=== PATIENT | female | born 1975 | race Caucasian/White ===

== ENCOUNTER 2024-05-18 09:10 | Inpatient (IN) | payer OTHER ==
[~2024-05-18] VITALS: Ht 162.6 cm; Wt 58.1 kg
[2024-05-18] VITALS (7 sets, daily range): BP systolic 119–120; BP diastolic 74–78; PULSE 79–80; RESP 17–18; TEMP 98.1–98.9; O2SAT 17–100
[2024-05-18 10:01] LABS: BASOPHILS % 0.7 % (0.0-1.0); EOSINOPHILS # (AUTO) 0.1 (0.0-0.4); HEMATOCRIT 35.4 % (34.2-44.1); HEMOGLOBIN 11.4 g/dL (12.0-16.0); LYMPHOCYTES # (AUTO) 1.2 (1.0-3.2); LYMPHOCYTES % 20.5 % (18.0-39.1); MEAN CORPUSCULAR HEMOGLOBIN 29.1 pg (28-32); MEAN CORPUSCULAR HGB CONC 32.2 g/dL (31-35); MEAN CORPUSCULAR VOLUME 90.3 fL (81-99); MONOCYTES # (AUTO) 0.7 (0.2-0.8); MONOCYTES % 12.4 % (4.4-11.3); NEUTROPHILS # (AUTO) 3.8 (2.1-6.9); NEUTROPHILS % 65.2 % (38.7-80.0); RED BLOOD COUNT 3.92 x10e6/uL (3.6-5.1); RED CELL DISTRIBUTION WIDTH 17.2 % (11.7-14.4); WHITE BLOOD COUNT 5.81 x10e3/uL (4.8-10.8)
[2024-05-18 10:05] LABS: PLATELET COUNT 80 x10e3/uL (140-360)
[2024-05-18 10:27] LABS: ALANINE AMINOTRANSFERASE 34 IU/L (0-55); ALBUMIN 3.1 g/dL (3.5-5.0); ALBUMIN/GLOBULIN RATIO 0.8 (0.8-2.0); ALKALINE PHOSPHATASE 161 IU/L (40-150); ANION GAP 15.7 mmol/L (8-16); BILIRUBIN,TOTAL 4.9 mg/dL (0.2-1.2); BLOOD UREA NITROGEN 8 mg/dL (7-26); BUN/CREATININE RATIO 10 (6-25); CALCIUM 8.4 mg/dL (8.4-10.2); CARBON DIOXIDE 28 mmol/L (22-29); CHLORIDE 93 mmol/L (98-107); CREATINE KINASE 216 IU/L (29-168); CREATININE, SERUM 0.84 mg/dL (0.57-1.11); EST GLOMERULAR FILTRATION RATE 85 ML/MIN (>=60); GLUCOSE 128 mg/dL (74-118); LIPASE 27 U/L (8-78); SODIUM 134 mmol/L (136-145); TOTAL PROTEIN 6.9 g/dL (6.5-8.1)
[2024-05-18 10:30] LABS: TROPONIN I 0.025 ng/mL (0-0.300)
[2024-05-18] MEDS: SODIUM CHLORIDE 0.9% 1000ML 1,000 ML IV STA (10:35)
[2024-05-18] MEDS: Morphine 4mg INJECTION 4 MG/ML INJ IV STA (10:35)
[2024-05-18 10:36] LABS: POTASSIUM 2.7 mmol/L (3.5-5.1)
[2024-05-18] MEDS ORDERED: IOPAMIDOL 370 MG/ML 100 ML INFUS..BTL INJ ONE ×2 (10:50→12:14)
[2024-05-18] MEDS: ONDANSETRON HCL INJ 2MG/ML 2ML 2 MG/ML VIAL IV STA (11:55)
[2024-05-18] MEDS: POTASSIUM CHLORIDE 20 MEQ TAB CR PO STA (11:56)
[2024-05-18] MEDS: POTASSIUM CHLORIDE 20MEQ/100ML 100 ML IV ONE (11:57)
[2024-05-18 13:29] LABS: CLARITY,URINE SL CLOUDY (CLEAR); COLOR,URINE ORANGE (YELLOW); GLUCOSE, URINE 1+ (NEGATIVE); KETONES,URINE TRACE (NEGATIVE); LEUKOCYTE ESTERASE ,URINE NEGATIVE (NEGATIVE); NITRITE,URINE NEGATIVE (NEGATIVE); PH,URINE 6 (5 - 7); PROTEIN,URINE DIPSTICK 1+ (NEGATIVE)
[2024-05-18 13:30] LABS: BILIRUBIN,URINE LARGE (NEGATIVE)
[2024-05-18 13:36] LABS: BACTERIA,URINE MODERATE /HPF; EPITHELIAL CELLS,URINE MODERATE /LPF; RBC,URINE 0-5 /HPF (0-5); WBC,URINE (MAN) 0-5 /HPF (0-5)
[2024-05-18] MEDS ORDERED: SODIUM CHLORIDE FLUSH 10 ML SYR INJ PRN (15:00)
[2024-05-18] MEDS: Morphine 4mg INJECTION 4 MG/ML INJ IV PRN (15:34)
[2024-05-18] MEDS: ONDANSETRON HCL INJ 2MG/ML 2ML 2 MG/ML VIAL IV PRN (15:34)
[2024-05-18 16:50] LABS: ANION GAP 14.2 mmol/L (8-16); CREATININE, SERUM 0.8 mg/dL (0.57-1.11)
[2024-05-18 16:53] LABS: POTASSIUM 3.2 mmol/L (3.5-5.1)
[2024-05-18] MEDS: SODIUM CHLORIDE 0.9% 1000ML 1,000 ML IV SCH (17:15)
[2024-05-18] MEDS ORDERED: LORAZEPAM INJ 2 MG/ML VIAL IV PRN (17:30)
[2024-05-18] MEDS ORDERED: CHLORDIAZEPOXIDE HCL 25 MG CAP PO PRN (17:45)
[2024-05-18] MEDS: FAMOTIDINE 20 MG/2 ML VIAL IV SCH (18:12)
[2024-05-18] MEDS: DIAZEPAM INJ 5 MG/ML 2 ML IV PRN (18:12)
[2024-05-18] MEDS: MULTIVITAMINS- 12 INJECTION 10 ML, FOLIC ACID MDV 1 MG, THIAMINE HCL INJ 100 MG in SODI... IV ONE (18:13)
[2024-05-18] MEDS: METOCLOPRAMIDE HCL 10 MG/2ML VIAL IV SCH (23:01)
[2024-05-18] MEDS ORDERED: PROTONIX20 MG PO (23:36)
[2024-05-18] MEDS ORDERED: ALDACTONE100 MG PO (23:36)
[2024-05-18] MEDS ORDERED: FUROSEMIDE40 MG PO (23:37)
[2024-05-19] VITALS: BP 106/68; PULSE 76; RESP 18; TEMP 97.8; O2SAT 98
[2024-05-19 04:00] VITALS: BP 115/73; PULSE 82; RESP 17; TEMP 97.9; O2SAT 94
[2024-05-19 06:08] LABS: BASOPHILS # (AUTO) 0.1 (0.0-0.1); BASOPHILS % 1.3 % (0.0-1.0); EOSINOPHILS # (AUTO) 0.2 (0.0-0.4); EOSINOPHILS % 3.9 % (0.0-6.0); HEMATOCRIT 31.5 % (34.2-44.1); LYMPHOCYTES # (AUTO) 1.1 (1.0-3.2); LYMPHOCYTES % 24.6 % (18.0-39.1); MEAN CORPUSCULAR HEMOGLOBIN 29.3 pg (28-32); MEAN CORPUSCULAR HGB CONC 31.7 g/dL (31-35); MEAN CORPUSCULAR VOLUME 92.4 fL (81-99); MONOCYTES # (AUTO) 0.5 (0.2-0.8); MONOCYTES % 10.8 % (4.4-11.3); NEUTROPHILS # (AUTO) 2.7 (2.1-6.9); NEUTROPHILS % 59.2 % (38.7-80.0); PLATELET COUNT 55 x10e3/uL (140-360); RED BLOOD COUNT 3.41 x10e6/uL (3.6-5.1); RED CELL DISTRIBUTION WIDTH 17.8 % (11.7-14.4); WHITE BLOOD COUNT 4.63 x10e3/uL (4.8-10.8)
[2024-05-19 06:16] LABS: INR 1.67; PROTHROMBIN TIME 20.5 seconds (11.9-14.5)
[2024-05-19 06:51] LABS: ALBUMIN 2.6 g/dL (3.5-5.0); ALBUMIN/GLOBULIN RATIO 0.5 (0.8-2.0); ANION GAP 10.2 mmol/L (8-16); BILIRUBIN,TOTAL 4.5 mg/dL (0.2-1.2); CALCIUM 8.5 mg/dL (8.4-10.2); CREATININE, SERUM 0.75 mg/dL (0.57-1.11); MAGNESIUM 1.9 MG/DL (1.3-2.1); TOTAL PROTEIN 7.8 g/dL (6.5-8.1)
[2024-05-19 06:52] LABS: POTASSIUM 3.2 mmol/L (3.5-5.1)
[2024-05-19 08:27] VITALS: BP 108/76; PULSE 73; RESP 17; TEMP 97.8; O2SAT 94
[2024-05-19] MEDS: FUROSEMIDE INJ 10 MG/ML 2 ML VIAL IV SCH (08:30)
[2024-05-19] MEDS: THIAMINE HCL INJ 100 MG/ML 2ML VIAL IV SCH (08:31)
[2024-05-19] MEDS: PROPRANOLOL HCL 10 MG TAB PO SCH (09:00)
[2024-05-19] MEDS: POTASSIUM CHLORIDE 20 MEQ TAB CR PO ONE (12:10)
[2024-05-19 12:18] VITALS: BP 127/84; PULSE 107; RESP 17; TEMP 98.1; O2SAT 100
[2024-05-19 12:59] LABS: FREE THYROXINE INDEX 2.7575 (1.4-3.8); T3 UPTAKE 33.67 % (22.5-37.0); T4 (THYROXINE) 8.19 ug/dL (4.5-10.9); THYROID STIMULATING HORMONE 3.436 uIU/mL (0.350-4.940)
[2024-05-19 15:38] VITALS: BP 120/84; PULSE 97; RESP 17; TEMP 97.5; O2SAT 97
[2024-05-19 18:23] LABS: HEPATITIS B SURFACE AG (P) Nonreactive; HEPATITIS C ANTIBODY Nonreactive
[2024-05-19 19:18] LABS: BODY FLUID APPEARANCE CLEAR; BODY FLUID COLOR YELLOW; RBC,BODY FLUID < 2000 cells/uL; WBC,BODY FLUID 69 cells/uL
[2024-05-19 20:00] VITALS: BP 117/78; PULSE 100; RESP 18; TEMP 98.3; O2SAT 95
[2024-05-19 20:08] LABS: LYMPHOCYTES,BODY FLUID 52 %; MONO/MACROPHG,BODY FLUID 24 %; NEUTROPHILS,BODY FLUID 12 %; OTHER CELLS,BODY FLUID 12 %; TOTAL CELLS COUNTED (DIFF) 50
[2024-05-20] VITALS: BP 117/75; PULSE 86; RESP 18; TEMP 98; O2SAT 93
[2024-05-20 02:03] VITALS: BP 117/75; PULSE 86; RESP 18; TEMP 98; O2SAT 93
[2024-05-20 04:00] VITALS: BP 109/72; PULSE 97; RESP 17; TEMP 98.4; O2SAT 95
[2024-05-20 09:16] VITALS: BP 125/84; PULSE 85; RESP 16; TEMP 98.2; O2SAT 95
[2024-05-20] MEDS ORDERED: INDERAL10 MG PO (11:58)
[2024-05-20 12:52] VITALS: BP 101/67; PULSE 81; RESP 16; TEMP 98.4; O2SAT 95
[2024-05-23 06:34] LABS: TOTAL PROTEIN,BODY FLUID 2.2 g/dL
[2024-05-23 14:48] LABS: BODY FLUID TYPE PLEURAL
== END 2024-05-20 12:50 | disposition home or self-care (01) | DRG 433 ==
LOC: ER 09:15 → ERHOLD 14:50 → MED/SURG2 16:26 → OBSVTOIN 05-19 10:36
PROVIDERS: ADMIT Internal Medicine; ATTEND Internal Medicine
PROC: HZ2ZZZZ Detoxification Services for Substance Abuse Treatment (ICD-10-PCS; principal; 2024-05-18)
PROC: 0W993ZZ Drainage of Right Pleural Cavity, Percutaneous Approach (ICD-10-PCS; 2024-05-19)
DX: K70.30 Alcoholic cirrhosis of liver without ascites (principal); D68.9 Coagulation defect, unspecified; F10.230 Alcohol dependence with withdrawal, uncomplicated; J90 Pleural effusion, not elsewhere classified; J94.8 Other specified pleural conditions; K70.9 Alcoholic liver disease, unspecified; E87.6 Hypokalemia; R11.2 Nausea with vomiting, unspecified; R19.7 Diarrhea, unspecified; D64.9 Anemia, unspecified; Z11.52 Encounter for screening for COVID-19
CPT/HCPCS: 32555; 36415; 71045; 71046; 71260; 74177; 74470; 76705; 80048; 80053; 80061; 81001; 82105; 82550; 83036; 83615; 83690; 83735; 84100; 84157; 84436; 84443; 84478; 84479; 84484; 84702; 85025; 85379; 85610; 87070; 87205; 89051; 93005; 99284; G0378; J0696; J1940; J2270; J2405; J2470; J2765; J3360; J3411; J3480; J7030; Q9967; U0002

== ENCOUNTER 2024-06-15 13:33 | Inpatient (IN) | payer OTHER ==
[~2024-06-15] VITALS: Ht 162.6 cm; Wt 56.7 kg
[~2024-06-15 13:33] MED LIST: ALDACTONE100 MG PO; FUROSEMIDE40 MG PO; INDERAL10 MG PO; PROTONIX20 MG PO
[2024-06-15 13:35] VITALS: TEMP 98.8
[2024-06-15 14:19] LABS: BASOPHILS # (AUTO) 0.1 (0.0-0.1); BASOPHILS % 1.3 % (0.0-1.0); EOSINOPHILS # (AUTO) 0.3 (0.0-0.4); EOSINOPHILS % 4.6 % (0.0-6.0); HEMATOCRIT 34.4 % (34.2-44.1); HEMOGLOBIN 10.9 g/dL (12.0-16.0); LYMPHOCYTES # (AUTO) 1.4 (1.0-3.2); LYMPHOCYTES % 26.7 % (18.0-39.1); MEAN CORPUSCULAR HEMOGLOBIN 30.2 pg (28-32); MEAN CORPUSCULAR HGB CONC 31.7 g/dL (31-35); MEAN CORPUSCULAR VOLUME 95.3 fL (81-99); MONOCYTES # (AUTO) 0.6 (0.2-0.8); MONOCYTES % 11.7 % (4.4-11.3); NEUTROPHILS % 55.3 % (38.7-80.0); RED BLOOD COUNT 3.61 x10e6/uL (3.6-5.1); RED CELL DISTRIBUTION WIDTH 19.5 % (11.7-14.4)
[2024-06-15] MEDS: Morphine 2mg Syringe 2 MG/ML SYR IV STA (14:21)
[2024-06-15] MEDS: ONDANSETRON HCL INJ 2MG/ML 2ML 2 MG/ML VIAL IV STA (14:21)
[2024-06-15] MEDS: SODIUM CHLORIDE 0.9% 1000ML 1,000 ML IV STA (14:22)
[2024-06-15 14:25] LABS: PLATELET COUNT 94 x10e3/uL (140-360)
[2024-06-15 14:29] LABS: INR 1.6; PROTHROMBIN TIME 19.8 seconds (11.9-14.5)
[2024-06-15 14:30] LABS: PARTIAL THROMBOPLASTIN TIME 38.9 seconds (23.8-35.5)
[2024-06-15 14:39] LABS: INFLUENZAE A&B ANTIGEN (RAPID) NEGATIVE (NEGATIVE); RESPIRATORY SYNC. VIRUS NEGATIVE (NEGATIVE)
[2024-06-15 14:54] LABS: ALBUMIN 2.7 g/dL (3.5-5.0); ALBUMIN/GLOBULIN RATIO 0.5 (0.8-2.0); BILIRUBIN,TOTAL 3.6 mg/dL (0.2-1.2); CALCIUM 8.2 mg/dL (8.4-10.2); CREATININE, SERUM 0.91 mg/dL (0.57-1.11); MAGNESIUM 1.9 MG/DL (1.3-2.1); TOTAL PROTEIN 7.8 g/dL (6.5-8.1)
[2024-06-15 15:01] LABS: TROPONIN I 0.012 ng/mL (0-0.300)
[2024-06-15] MEDS ORDERED: IOPAMIDOL 370 MG/ML 100 ML INFUS..BTL INJ ONE (15:23)
[2024-06-15 15:59] LABS: CLARITY,URINE CLOUDY (CLEAR); COLOR,URINE YELLOW (YELLOW)
[2024-06-15 16:00] LABS: BILIRUBIN,URINE NEGATIVE (NEGATIVE); GLUCOSE, URINE NEGATIVE (NEGATIVE); KETONES,URINE NEGATIVE (NEGATIVE); LEUKOCYTE ESTERASE ,URINE SMALL (NEGATIVE); NITRITE,URINE NEGATIVE (NEGATIVE); PH,URINE 7 (5 - 7); PROTEIN,URINE DIPSTICK NEGATIVE (NEGATIVE)
[2024-06-15 16:03] LABS: BACTERIA,URINE FEW /HPF; EPITHELIAL CELLS,URINE MODERATE /LPF; RBC,URINE 0-5 /HPF (0-5)
[2024-06-15] MEDS ORDERED: ALBUMIN 25% 25GM 100ML 0.25 GM/ML BTL IV SCH (16:45)
[2024-06-15] MEDS ORDERED: ALBUMIN 25% 25GM 100ML 100 ML IV SCH (17:00)
[2024-06-15 17:05] VITALS: PULSE 83; RESP 15
[2024-06-15] MEDS ORDERED: FOLIC ACID0.4 MG PO (18:33)
[2024-06-15] MEDS ORDERED: LACTULOSE20 GM/30 M PO (18:33)
[2024-06-15] MEDS ORDERED: VITAMIN B-1100 M1 PO (18:33)
[2024-06-15] MEDS: SODIUM CHLORIDE 0.9% 500ML 500 ML IV ONE ×3 (18:52→18:55)
[2024-06-15] MEDS: ONDANSETRON HCL INJ 2MG/ML 2ML 2 MG/ML VIAL IV PRN (18:54)
[2024-06-15] MEDS: HYDROCODONE/APAP 10MG-325MG TAB PO PRN (18:56)
[2024-06-15] MEDS ORDERED: POLYETHYLENE GLYCOL 3350 17 GM PACK PO PRN (19:00)
[2024-06-15 19:03] VITALS: BP 92/57; PULSE 97; RESP 18; TEMP 97.7; O2SAT 100
[2024-06-15] MEDS: MIDODRINE HCL 5 MG TABLET PO SCH (19:03)
[2024-06-15 19:46] VITALS: BP 98/61; PULSE 73; RESP 18; TEMP 97.9; O2SAT 99
[2024-06-15] MEDS: ALBUMIN 25% 25GM 100ML 100 ML IV SCH (21:43)
[2024-06-15] MEDS: TRAMADOL HCL 50 MG TAB PO PRN (22:57)
[2024-06-15 23:28] VITALS: BP 94/62; PULSE 63; RESP 18; TEMP 98; O2SAT 100
[2024-06-16] VITALS (11 sets, daily range): BP systolic 83–112; BP diastolic 52–82; PULSE 57–95; RESP 18–20; TEMP 97.8–98.1; O2SAT 92–99
[2024-06-16 00:08] LABS: TROPONIN I 0.016 ng/mL (0-0.300)
[2024-06-16 06:04] LABS: BASOPHILS # (AUTO) 0.1 (0.0-0.1); BASOPHILS % 1.2 % (0.0-1.0); EOSINOPHILS # (AUTO) 0.2 (0.0-0.4); EOSINOPHILS % 5.7 % (0.0-6.0); HEMOGLOBIN 9.1 g/dL (12.0-16.0); LYMPHOCYTES # (AUTO) 1.4 (1.0-3.2); LYMPHOCYTES % 32.1 % (18.0-39.1); MEAN CORPUSCULAR HEMOGLOBIN 29.9 pg (28-32); MEAN CORPUSCULAR HGB CONC 31.4 g/dL (31-35); MEAN CORPUSCULAR VOLUME 95.4 fL (81-99); MONOCYTES # (AUTO) 0.8 (0.2-0.8); MONOCYTES % 17.9 % (4.4-11.3); NEUTROPHILS # (AUTO) 1.8 (2.1-6.9); NEUTROPHILS % 42.9 % (38.7-80.0); PLATELET COUNT 64 x10e3/uL (140-360); RED BLOOD COUNT 3.04 x10e6/uL (3.6-5.1); RED CELL DISTRIBUTION WIDTH 19.7 % (11.7-14.4)
[2024-06-16 06:22] LABS: ALBUMIN 2.8 g/dL (3.5-5.0); ALBUMIN/GLOBULIN RATIO 0.7 (0.8-2.0); ANION GAP 12.1 mmol/L (8-16); BILIRUBIN,TOTAL 2.1 mg/dL (0.2-1.2); CREATININE, SERUM 0.74 mg/dL (0.57-1.11); PHOSPHORUS 2.8 MG/DL (2.3-4.7); POTASSIUM 4.1 mmol/L (3.5-5.1); TOTAL PROTEIN 6.7 g/dL (6.5-8.1)
[2024-06-16 07:01] LABS: TROPONIN I 0.011 ng/mL (0-0.300)
[2024-06-16] MEDS ORDERED: PANTOPRAZOLE SOD 40 MG TABEC PO SCH (09:00)
[2024-06-16] MEDS ORDERED: FOLIC ACID 0.4 MG PO SCH (09:00)
[2024-06-16] MEDS: SPIRONOLACTONE 25 MG TAB PO SCH (09:23)
[2024-06-16] MEDS: DOCUSATE SODIUM 100 MG CAP PO SCH (09:23)
[2024-06-16] MEDS: THIAMINE HCL 100 MG TAB PO SCH (09:23)
[2024-06-16] MEDS: FOLIC ACID 1 MG TAB PO SCH (09:23)
[2024-06-16] MEDS: LACTULOSE SYRUP 20 GM/30 ML UDC PO SCH (09:24)
[2024-06-16] MEDS: FUROSEMIDE 40 MG TAB PO ONE (22:48)
[2024-06-17] VITALS: BP 117/49; PULSE 61; RESP 20; TEMP 97.9; O2SAT 100
[2024-06-17 04:00] VITALS: BP 99/55; PULSE 65; RESP 20; TEMP 98.1; O2SAT 99
[2024-06-17] MEDS: FUROSEMIDE 40 MG TAB PO SCH (06:03)
[2024-06-17 06:50] VITALS: PULSE 68; RESP 20; O2SAT 97
[2024-06-17 08:00] VITALS: BP 98/68; PULSE 58; RESP 17; TEMP 97.8; O2SAT 100
[2024-06-17 08:16] VITALS: BP 98/68; PULSE 58; RESP 17; TEMP 97.8; O2SAT 100
[2024-06-17] MEDS: SPIRONOLACTONE 25 MG TAB PO SCH (09:00)
[2024-06-17] MEDS ORDERED: FUROSEMIDE 40 MG TAB PO SCH (09:00)
[2024-06-17 10:16] VITALS: PULSE 72; RESP 20; O2SAT 96
== END 2024-06-17 12:05 | disposition home or self-care (01) | DRG 433 ==
LOC: ER 13:42 → ERHOLD 17:37 → MED/SURG3 18:28
PROVIDERS: ADMIT Internal Medicine; ATTEND Internal Medicine
DX: K70.30 Alcoholic cirrhosis of liver without ascites (principal); D68.4 Acquired coagulation factor deficiency; J91.8 Pleural effusion in other conditions classified elsewhere; K76.6 Portal hypertension; E87.1 Hypo-osmolality and hyponatremia; J94.8 Other specified pleural conditions; D63.8 Anemia in other chronic diseases classified elsewhere; E88.09 Other disorders of plasma-protein metabolism, not elsewhere classified; D69.59 Other secondary thrombocytopenia; E80.6 Other disorders of bilirubin metabolism; R82.998 Other abnormal findings in urine; I95.9 Hypotension, unspecified; F10.21 Alcohol dependence, in remission; Z11.52 Encounter for screening for COVID-19; Z87.11 Personal history of peptic ulcer disease; Z90.49 Acquired absence of other specified parts of digestive tract; Z79.899 Other long term (current) drug therapy
CPT/HCPCS: 36415; 71045; 71260; 74177; 80053; 81001; 82105; 82550; 83690; 83735; 84100; 84484; 85025; 85610; 85730; 87040; 87086; 87400; 87420; 93005; 93306; 94799; 99284; J0696; J2270; J2405; J2470; J3411; J7030; J7040; P9047; Q9967; U0002

== ENCOUNTER 2024-11-27 13:53 | Inpatient (IN) | payer MEDICARE, OTHER ==
[~2024-11-27] VITALS: Ht 162.6 cm; Wt 59.0 kg
[~2024-11-27 13:53] MED LIST changes: +FOLIC ACID0.4 MG PO; +LACTULOSE20 GM/30 M PO; +VITAMIN B-1100 M1 PO
[2024-11-27] MEDS ORDERED: SODIUM CHLORIDE FLUSH 10 ML SYR IV PRN (15:45)
[2024-11-27 16:15] LABS: BASOPHILS # (AUTO) 0.1 (0.0-0.1); BASOPHILS % 1.3 % (0.0-1.0); EOSINOPHILS # (AUTO) 0.2 (0.0-0.4); EOSINOPHILS % 2.8 % (0.0-6.0); HEMATOCRIT 32.2 % (34.2-44.1); HEMOGLOBIN 10.3 g/dL (12.0-16.0); LYMPHOCYTES # (AUTO) 1.3 (1.0-3.2); LYMPHOCYTES % 18.6 % (18.0-39.1); MEAN CORPUSCULAR HEMOGLOBIN 27.6 pg (28-32); MEAN CORPUSCULAR VOLUME 86.3 fL (81-99); MONOCYTES # (AUTO) 0.8 (0.2-0.8); MONOCYTES % 11.3 % (4.4-11.3); NEUTROPHILS # (AUTO) 4.5 (2.1-6.9); NEUTROPHILS % 65.7 % (38.7-80.0); PLATELET COUNT 165 x10e3/uL (140-360); RED BLOOD COUNT 3.73 x10e6/uL (3.6-5.1); RED CELL DISTRIBUTION WIDTH 18.3 % (11.7-14.4); WHITE BLOOD COUNT 6.82 x10e3/uL (4.8-10.8)
[2024-11-27 16:27] LABS: BILIRUBIN,URINE SMALL (NEGATIVE); CLARITY,URINE HAZY (CLEAR); COLOR,URINE AMBER (YELLOW); GLUCOSE, URINE NEGATIVE (NEGATIVE); KETONES,URINE NEGATIVE (NEGATIVE); LEUKOCYTE ESTERASE ,URINE NEGATIVE (NEGATIVE); NITRITE,URINE NEGATIVE (NEGATIVE); PH,URINE 6 (5 - 7); PROTEIN,URINE DIPSTICK TRACE (NEGATIVE); URINE UROBILINOGEN 4 mg/dL (0.2 - 1); WBC,URINE (MAN) 0-5 /HPF (0-5)
[2024-11-27 16:28] LABS: BACTERIA,URINE FEW /HPF; EPITHELIAL CELLS,URINE FEW /LPF; INR 1.21
[2024-11-27 16:29] LABS: PARTIAL THROMBOPLASTIN TIME 34.9 seconds (23.8-35.5)
[2024-11-27 16:33] VITALS: PULSE 74; RESP 20; O2SAT 98
[2024-11-27 16:36] LABS: ALANINE AMINOTRANSFERASE 23 IU/L (0-55); ALBUMIN 2.4 g/dL (3.5-5.0); ALBUMIN/GLOBULIN RATIO 0.5 (0.8-2.0); ALKALINE PHOSPHATASE 146 IU/L (40-150); ANION GAP 14.5 mmol/L (8-16); BILIRUBIN,TOTAL 1.5 mg/dL (0.2-1.2); BLOOD UREA NITROGEN 10 mg/dL (7-26); BUN/CREATININE RATIO 14 (6-25); CALCIUM 8.3 mg/dL (8.4-10.2); CARBON DIOXIDE 24 mmol/L (22-29); CHLORIDE 104 mmol/L (98-107); CREATININE, SERUM 0.74 mg/dL (0.57-1.11); EST GLOMERULAR FILTRATION RATE 99 ML/MIN (>=60); GLUCOSE 78 mg/dL (74-118); MAGNESIUM 1.6 MG/DL (1.3-2.1); POTASSIUM 3.5 mmol/L (3.5-5.1); SODIUM 139 mmol/L (136-145); TOTAL PROTEIN 7.4 g/dL (6.5-8.1)
[2024-11-27 16:46] LABS: TROPONIN I < 0.001 ng/mL (0-0.300)
[2024-11-27] MEDS: ONDANSETRON HCL INJ 2MG/ML 2ML 2 MG/ML VIAL IV STA (17:05)
[2024-11-27] MEDS: Morphine 4mg INJECTION 4 MG/ML INJ IV STA (17:06)
[2024-11-27 17:47] VITALS: PULSE 92; RESP 22; TEMP 98
[2024-11-27] MEDS: FUROSEMIDE INJ 10 MG/ML 4 ML VIAL IV ONE (18:06)
[2024-11-27 18:47] VITALS: PULSE 88; RESP 18; O2SAT 95
[2024-11-27 20:30] VITALS: BP 106/70; PULSE 88; RESP 18; O2SAT 95
[2024-11-27 22:14] VITALS: BP 122/79; PULSE 93; TEMP 98.6; O2SAT 94
[2024-11-27] MEDS: ONDANSETRON HCL INJ 2MG/ML 2ML 2 MG/ML VIAL IV PRN (22:17)
[2024-11-27] MEDS: Morphine 2mg Syringe 2 MG/ML SYR IV PRN (22:17)
[2024-11-27 22:35] VITALS: BP 122/79; PULSE 93; RESP 20; TEMP 98.6; O2SAT 94
[2024-11-28] VITALS (7 sets, daily range): BP systolic 107–126; BP diastolic 75–85; PULSE 80–96; RESP 16–20; TEMP 97.9–100.1; O2SAT 92–96
[2024-11-28 03:39] LABS: CREATINE KINASE 91 IU/L (29-168)
[2024-11-28 03:46] LABS: TROPONIN I < 0.001 ng/mL (0-0.300)
[2024-11-28 05:11] LABS: BASOPHILS # (AUTO) 0.1 (0.0-0.1); BASOPHILS % 1.2 % (0.0-1.0); EOSINOPHILS # (AUTO) 0.3 (0.0-0.4); HEMOGLOBIN 9.5 g/dL (12.0-16.0); LYMPHOCYTES # (AUTO) 1.2 (1.0-3.2); LYMPHOCYTES % 24.3 % (18.0-39.1); MEAN CORPUSCULAR HEMOGLOBIN 27.5 pg (28-32); MEAN CORPUSCULAR HGB CONC 31.7 g/dL (31-35); MEAN CORPUSCULAR VOLUME 86.7 fL (81-99); MONOCYTES # (AUTO) 0.6 (0.2-0.8); MONOCYTES % 11.3 % (4.4-11.3); NEUTROPHILS # (AUTO) 2.7 (2.1-6.9); PLATELET COUNT 114 x10e3/uL (140-360); RED BLOOD COUNT 3.46 x10e6/uL (3.6-5.1); RED CELL DISTRIBUTION WIDTH 18.4 % (11.7-14.4); WHITE BLOOD COUNT 4.85 x10e3/uL (4.8-10.8)
[2024-11-28 05:47] LABS: ALBUMIN 2.3 g/dL (3.5-5.0); ALBUMIN/GLOBULIN RATIO 0.5 (0.8-2.0); ANION GAP 11.4 mmol/L (8-16); BILIRUBIN,TOTAL 1.6 mg/dL (0.2-1.2); CALCIUM 8.2 mg/dL (8.4-10.2); CREATININE, SERUM 0.78 mg/dL (0.57-1.11); TOTAL PROTEIN 6.6 g/dL (6.5-8.1)
[2024-11-28 05:49] LABS: POTASSIUM 3.4 mmol/L (3.5-5.1)
[2024-11-28 06:10] LABS: CREATINE KINASE 85 IU/L (29-168)
[2024-11-28 06:16] LABS: TROPONIN I < 0.001 ng/mL (0-0.300)
[2024-11-28] MEDS: PANTOPRAZOLE SOD 40 MG TABEC PO SCH (15:36)
[2024-11-28] MEDS: FUROSEMIDE 40 MG TAB PO SCH (15:36)
[2024-11-28 17:22] LABS: TROPONIN I 0.006 ng/mL (0-0.300)
[2024-11-28 18:18] LABS: EOSINOPHILS,BODY FLUID 1 %; LYMPHOCYTES,BODY FLUID 59 %; MONO/MACROPHG,BODY FLUID 40 %; TOTAL CELLS COUNTED (DIFF) 100
[2024-11-28 18:19] LABS: BODY FLUID APPEARANCE SL.CLOUDY; BODY FLUID COLOR YELLOW; BODY FLUID TYPE PLEURAL; NEUTROPHILS,BODY FLUID 0 %; RBC,BODY FLUID 5000 cells/uL; WBC,BODY FLUID 159 cells/uL
[2024-11-28] MEDS: SODIUM CHLORIDE 0.9% 250ML 250 ML ONE (19:23)
[2024-11-28] MEDS: IBUPROFEN 200 MG TAB PO PRN (22:58)
[2024-11-29 02:27] VITALS: BP 99/72; PULSE 84; RESP 18; TEMP 98.1; O2SAT 95
[2024-11-29 05:39] VITALS: BP 100/75; O2SAT 86
[2024-11-29 08:00] VITALS: BP 105/70; PULSE 80; RESP 19; TEMP 97.9; O2SAT 95
[2024-11-29] MEDS: FOLIC ACID 0.4 MG PO SCH (09:00)
[2024-11-29] MEDS: SPIRONOLACTONE 25 MG TAB PO SCH (09:06)
[2024-11-29] MEDS: THIAMINE HCL 100 MG TAB PO SCH (09:06)
[2024-11-29 09:15] VITALS: BP 105/70; PULSE 80; RESP 19; TEMP 97.9; O2SAT 95
[2024-11-29 19:02] LABS: TOTAL PROTEIN,BODY FLUID 1.4 g/dL
== END 2024-11-29 10:41 | disposition home or self-care (01) | DRG 433 ==
LOC: ER 16:19 → ERHOLD 17:35 → MED/SURG 20:00
PROVIDERS: ADMIT Internal Medicine; ATTEND Internal Medicine
PROC: 0W993ZZ Drainage of Right Pleural Cavity, Percutaneous Approach (ICD-10-PCS; principal; 2024-11-28)
DX: K70.31 Alcoholic cirrhosis of liver with ascites (principal); J94.8 Other specified pleural conditions; K76.6 Portal hypertension; F10.20 Alcohol dependence, uncomplicated; Y90.6 Blood alcohol level of 120-199 mg/100 ml; K21.9 Gastro-esophageal reflux disease without esophagitis
CPT/HCPCS: 32555; 36415; 71045; 74470; 76705; 80053; 80320; 81001; 82040; 82550; 82945; 83615; 83735; 83880; 84157; 84484; 85025; 85610; 85730; 87040; 87070; 87205; 88112; 88305; 89051; 93005; 94760; 94799; 99284; C1729; J0696; J1940; J2270; J2405; J2470; J3411; J7050

== ENCOUNTER 2024-12-10 20:27 | Inpatient (IN) | payer OTHER ==
[~2024-12-10] VITALS: Ht 162.6 cm; Wt 59.0 kg
[2024-12-10] MEDS: SODIUM CHLORIDE 0.9% 1000ML 1,000 ML IV STA (21:39)
[2024-12-10] MEDS: ONDANSETRON HCL INJ 2MG/ML 2ML 2 MG/ML VIAL IV STA ×2 (21:39→23:31)
[2024-12-10 21:41] LABS: BASOPHILS # (AUTO) 0.1 (0.0-0.1); BASOPHILS % 1.4 % (0.0-1.0); EOSINOPHILS # (AUTO) 0.4 (0.0-0.4); EOSINOPHILS % 6.7 % (0.0-6.0); HEMOGLOBIN 11.3 g/dL (12.0-16.0); LYMPHOCYTES # (AUTO) 1.2 (1.0-3.2); MEAN CORPUSCULAR HEMOGLOBIN 27.6 pg (28-32); MEAN CORPUSCULAR HGB CONC 32.3 g/dL (31-35); MEAN CORPUSCULAR VOLUME 85.6 fL (81-99); MONOCYTES # (AUTO) 0.7 (0.2-0.8); MONOCYTES % 10.2 % (4.4-11.3); NEUTROPHILS # (AUTO) 4.1 (2.1-6.9); NEUTROPHILS % 63.4 % (38.7-80.0); PLATELET COUNT 174 x10e3/uL (140-360); RED BLOOD COUNT 4.09 x10e6/uL (3.6-5.1); RED CELL DISTRIBUTION WIDTH 19.1 % (11.7-14.4); WHITE BLOOD COUNT 6.39 x10e3/uL (4.8-10.8)
[2024-12-10 21:56] LABS: ALBUMIN 2.4 g/dL (3.5-5.0); ALBUMIN/GLOBULIN RATIO 0.4 (0.8-2.0); ANION GAP 16.1 mmol/L (8-16); BILIRUBIN,TOTAL 1.4 mg/dL (0.2-1.2); CALCIUM 8.5 mg/dL (8.4-10.2); CREATININE, SERUM 1.12 mg/dL (0.57-1.11); POTASSIUM 4.1 mmol/L (3.5-5.1)
[2024-12-10 22:02] LABS: TROPONIN I 0.005 ng/mL (0-0.300)
[2024-12-10 22:22] LABS: CLARITY,URINE CLOUDY (CLEAR); COLOR,URINE YELLOW (YELLOW); GLUCOSE, URINE NEGATIVE (NEGATIVE); KETONES,URINE TRACE (NEGATIVE); LEUKOCYTE ESTERASE ,URINE NEGATIVE (NEGATIVE); NITRITE,URINE NEGATIVE (NEGATIVE); PH,URINE 5.5 (5 - 7); PROTEIN,URINE DIPSTICK NEGATIVE (NEGATIVE)
[2024-12-10 22:23] LABS: BACTERIA,URINE MODERATE /HPF; BILIRUBIN,URINE NEGATIVE (NEGATIVE); CALCIUM OXALATE CRYSTALS,UR FEW (FEW); EPITHELIAL CELLS,URINE MODERATE /LPF; MUCUS,URINE MODERATE; RENAL EPITHELIAL CELLS,URINE FEW; TRANSITIONAL EPI CELLS,URINE FEW; URINE UROBILINOGEN 0.2 mg/dL (0.2 - 1)
[2024-12-10] MEDS: Morphine 4mg INJECTION 4 MG/ML INJ IV STA (23:31)
[2024-12-11] VITALS (8 sets, daily range): BP systolic 102–121; BP diastolic 67–86; PULSE 73–87; RESP 16–18; TEMP 97.9–98.8; O2SAT 90–100
[2024-12-11] MEDS ORDERED: SODIUM CHLORIDE 0.9% 100 ML ONE
[2024-12-11] MEDS ORDERED: IOPAMIDOL 370 MG/ML 100 ML INFUS..BTL INJ ONE (00:01)
[2024-12-11] MEDS: ONDANSETRON HCL INJ 2MG/ML 2ML 2 MG/ML VIAL IV PRN (04:49)
[2024-12-11] MEDS: Morphine 4mg INJECTION 4 MG/ML INJ IV PRN (04:50)
[2024-12-11] MEDS: SODIUM CHLORIDE 0.9% 1000ML 1,000 ML IV SCH (05:57)
[2024-12-11 08:47] LABS: PARTIAL THROMBOPLASTIN TIME 22.6 seconds (23.8-35.5)
[2024-12-11 08:51] LABS: INR 1.15; PROTHROMBIN TIME 15.4 seconds (11.9-14.5)
[2024-12-11 08:54] LABS: CREATINE KINASE 94 IU/L (29-168)
[2024-12-11 09:06] LABS: TROPONIN I < 0.001 ng/mL (0-0.300)
[2024-12-11] MEDS ORDERED: ONDANSETRON ODT4 MG PO (10:12)
[2024-12-11] MEDS ORDERED: SUCRALFATE1 GM PO (10:12)
[2024-12-11] MEDS ORDERED: MIDODRINE HCL5 MG PO (10:12)
[2024-12-11] MEDS ORDERED: MIDODRINE HCL 5 MG TABLET PO PRN (10:30)
[2024-12-11] MEDS ORDERED: ONDANSETRON HCL 4 MG ORAL DISINTEGRATING TAB PO PRN (10:45)
[2024-12-11] MEDS: PANTOPRAZOLE SOD 40 MG TABEC PO SCH (17:30)
[2024-12-11] MEDS: SPIRONOLACTONE 25 MG TAB PO SCH (17:30)
[2024-12-11] MEDS: FUROSEMIDE 40 MG TAB PO ONE (22:05)
[2024-12-12] VITALS (9 sets, daily range): BP systolic 102–118; BP diastolic 72–85; PULSE 76–92; RESP 17–20; TEMP 97.7–98.4; O2SAT 93–100
[2024-12-12 07:17] LABS: BASOPHILS # (AUTO) 0.1 (0.0-0.1); BASOPHILS % 1.8 % (0.0-1.0); EOSINOPHILS # (AUTO) 0.5 (0.0-0.4); EOSINOPHILS % 11.4 % (0.0-6.0); HEMATOCRIT 30.3 % (34.2-44.1); HEMOGLOBIN 9.6 g/dL (12.0-16.0); LYMPHOCYTES # (AUTO) 0.9 (1.0-3.2); LYMPHOCYTES % 20.7 % (18.0-39.1); MEAN CORPUSCULAR HEMOGLOBIN 27.8 pg (28-32); MEAN CORPUSCULAR HGB CONC 31.7 g/dL (31-35); MEAN CORPUSCULAR VOLUME 87.8 fL (81-99); MONOCYTES # (AUTO) 0.5 (0.2-0.8); MONOCYTES % 11.8 % (4.4-11.3); NEUTROPHILS # (AUTO) 2.4 (2.1-6.9); NEUTROPHILS % 54.1 % (38.7-80.0); PLATELET COUNT 122 x10e3/uL (140-360); RED BLOOD COUNT 3.45 x10e6/uL (3.6-5.1); RED CELL DISTRIBUTION WIDTH 18.3 % (11.7-14.4); WHITE BLOOD COUNT 4.39 x10e3/uL (4.8-10.8)
[2024-12-12 07:36] LABS: ALBUMIN 2.2 g/dL (3.5-5.0); ALBUMIN/GLOBULIN RATIO 0.5 (0.8-2.0); ANION GAP 11.9 mmol/L (8-16); BILIRUBIN,TOTAL 1.5 mg/dL (0.2-1.2); CALCIUM 8.2 mg/dL (8.4-10.2); CREATININE, SERUM 0.82 mg/dL (0.57-1.11); POTASSIUM 3.9 mmol/L (3.5-5.1); TOTAL PROTEIN 6.7 g/dL (6.5-8.1)
[2024-12-12 07:56] LABS: TROPONIN I 0.004 ng/mL (0-0.300)
[2024-12-12] MEDS: FUROSEMIDE 40 MG TAB PO SCH (08:21)
[2024-12-12] MEDS ORDERED: FUROSEMIDE 40 MG TAB PO SCH (09:00)
[2024-12-12] MEDS: TRAMADOL HCL 50 MG TAB PO PRN (11:04)
[2024-12-12 11:23] LABS: BODY FLUID TYPE PLEURAL; RBC,BODY FLUID 1000 cells/uL; WBC,BODY FLUID 116 cells/uL
[2024-12-12 11:42] LABS: EOSINOPHILS,BODY FLUID 2 %; LYMPHOCYTES,BODY FLUID 66 %; MONO/MACROPHG,BODY FLUID 30 %; NEUTROPHILS,BODY FLUID 2 %; TOTAL CELLS COUNTED (DIFF) 100
[2024-12-12 11:49] LABS: BODY FLUID APPEARANCE CLEAR; BODY FLUID COLOR YELLOW
[2024-12-13] VITALS (10 sets, daily range): BP systolic 105–121; BP diastolic 56–83; PULSE 77–100; RESP 16–20; TEMP 97.3–98.6; O2SAT 93–100
[2024-12-13 05:17] LABS: BASOPHILS # (AUTO) 0.1 (0.0-0.1); BASOPHILS % 1.1 % (0.0-1.0); EOSINOPHILS # (AUTO) 0.3 (0.0-0.4); EOSINOPHILS % 4.8 % (0.0-6.0); HEMOGLOBIN 10.3 g/dL (12.0-16.0); LYMPHOCYTES # (AUTO) 0.9 (1.0-3.2); LYMPHOCYTES % 14.5 % (18.0-39.1); MEAN CORPUSCULAR HEMOGLOBIN 27.9 pg (28-32); MEAN CORPUSCULAR HGB CONC 32.2 g/dL (31-35); MEAN CORPUSCULAR VOLUME 86.7 fL (81-99); MONOCYTES # (AUTO) 0.7 (0.2-0.8); MONOCYTES % 11.3 % (4.4-11.3); NEUTROPHILS # (AUTO) 4.2 (2.1-6.9); NEUTROPHILS % 67.8 % (38.7-80.0); PLATELET COUNT 129 x10e3/uL (140-360); RED BLOOD COUNT 3.69 x10e6/uL (3.6-5.1); RETICULOCYTE % 2.7 % (0.8-2.2); WHITE BLOOD COUNT 6.22 x10e3/uL (4.8-10.8)
[2024-12-13 05:49] LABS: ALBUMIN 2.3 g/dL (3.5-5.0); ALBUMIN/GLOBULIN RATIO 0.5 (0.8-2.0); BILIRUBIN,TOTAL 1.8 mg/dL (0.2-1.2); CREATININE, SERUM 0.83 mg/dL (0.57-1.11); TOTAL PROTEIN 6.9 g/dL (6.5-8.1)
[2024-12-13 05:57] LABS: THYROID STIMULATING HORMONE 0.826 uIU/mL (0.350-4.940)
[2024-12-13 06:38] LABS: FOLATE 14.7 ng/mL (7.0-15.4)
[2024-12-13] MEDS ORDERED: LIDOCAINE HCL 2% LOCAL INJ 5 ML SDV VIAL INJ ONE (15:10)
[2024-12-13] MEDS ORDERED: PROPOFOL IV EMULSION 10 MG/ML 20 ML VIAL ONE (15:10)
[2024-12-13] MEDS ORDERED: ALBUTEROL/IPRATROPIUM 3 ML NEB ONE ×2 (15:57→15:59)
[2024-12-13] MEDS ORDERED: FENTANYL CITRATE/PF 100MCG/2 ML INJ ONE (16:28)
[2024-12-13] MEDS ORDERED: METOCLOPRAMIDE HCL 10 MG/2ML VIAL ONE (16:43)
[2024-12-14 06:51] LABS: TOTAL PROTEIN,BODY FLUID 1.6 g/dL
== END 2024-12-13 22:00 | disposition home or self-care (01) | DRG 432 ==
LOC: ER 20:38 → ERHOLD 12-11 03:22 → MED/SURG 12-11 09:43
PROVIDERS: ADMIT Internal Medicine; ATTEND Internal Medicine
PROC: 0W993ZZ Drainage of Right Pleural Cavity, Percutaneous Approach (ICD-10-PCS; principal; 2024-12-12)
PROC: 0DB78ZX Excision of Stomach, Pylorus, Via Natural or Artificial Opening Endoscopic, Diagnostic (ICD-10-PCS; 2024-12-13)
DX: K70.30 Alcoholic cirrhosis of liver without ascites (principal); K22.11 Ulcer of esophagus with bleeding; K25.4 Chronic or unspecified gastric ulcer with hemorrhage; J94.8 Other specified pleural conditions; D68.4 Acquired coagulation factor deficiency; K76.6 Portal hypertension; N17.9 Acute kidney failure, unspecified; I85.10 Secondary esophageal varices without bleeding; J91.8 Pleural effusion in other conditions classified elsewhere; T18.2XXA Foreign body in stomach, initial encounter; W44.F3XA Food entering into or through a natural orifice, initial encounter; Y92.009 Unspecified place in unspecified non-institutional (private) residence as the place of occurrence of the external cause; K31.84 Gastroparesis; D50.0 Iron deficiency anemia secondary to blood loss (chronic); K44.9 Diaphragmatic hernia without obstruction or gangrene; K31.89 Other diseases of stomach and duodenum; F10.11 Alcohol abuse, in remission; R16.1 Splenomegaly, not elsewhere classified; E66.01 Morbid (severe) obesity due to excess calories; Z68.22 Body mass index [BMI] 22.0-22.9, adult; Z71.81 Spiritual or religious counseling; Z79.899 Other long term (current) drug therapy
CPT/HCPCS: 32555; 36415; 43239; 71045; 71046; 74174; 74470; 80053; 81001; 81025; 82550; 82607; 82746; 82948; 83540; 83615; 83690; 84157; 84443; 84466; 84478; 84484; 85025; 85045; 85610; 85730; 87070; 87086; 87186; 87205; 88305; 88342; 89051; 93005; 93306; 94799; 99284; J2003; J2270; J2405; J2470; J2765; J7030; J7050; Q9967